=== PATIENT | male | born 1935 | race Caucasian/White ===

== ENCOUNTER → 2018-04-20 | Outpatient (CLI) | payer MEDICARE, BC ==
[2018-04-20 13:03] LABS: Appearance, Urine Clear (Clear); Bilirubin, Urine Neg (Neg); Blood, Urine Neg (Neg); Color, Urine Yellow (P-Yellow); Glucose Qualitative, Urine Neg (Neg); Ketones, Urine Neg (Neg); Leukocyte Esterase, Urine Neg (Neg); Nitrite, Urine Neg (Neg); Protein, Urine Neg (Neg); Urobilinogen, Urine 1+ (Normal)
== END ==
LOC: LAB 12:47 → LAB SHORT 12:47
PROVIDERS: Physician Assistant
DX: R32 Unspecified urinary incontinence (principal)
CPT/HCPCS: 81003; 87086

== ENCOUNTER → 2019-09-25 | Outpatient (CLI) | payer MEDICARE | LOC: LAB SHORT 09:40 → LAB EV 09:40 | DX: R31.9 Hematuria, unspecified (principal) | CPT/HCPCS: 87086 ==